=== PATIENT | female | born 1990 | race Caucasian/White ===

== ENCOUNTER 2017-08-15 09:02 | Emergency (ER) | payer OTHER ==
[~2017-08-15] VITALS: Ht 157.5 cm; Wt 59.0 kg
[~2017-08-15 09:02] MED LIST: CEFTIN250 MG PO; URIN D.S. TABLE1 TAB PO
== END 2017-08-15 12:56 | disposition home or self-care (01) ==
LOC: ER 09:02
DX: M79.81 Nontraumatic hematoma of soft tissue (principal)

== ENCOUNTER 2021-03-30 14:15 | Inpatient (IN) | payer OTHER ==
[~2021-03-30] VITALS: Ht 157.5 cm; Wt 76.7 kg
[2021-04-02] MEDS ORDERED: PRENATAL TABLE1 EAC1 PO (21:36)
[2021-04-02] MEDS ORDERED: FAMOTIDINE40 MG PO (21:38)
[2021-04-02] MEDS ORDERED: PROZAC40 MG PO (21:39)
== END 2021-04-05 11:24 | disposition home or self-care (01) | DRG 807 ==
LOC: LDR 04-02 21:24 → SURG-SUITE 04-02 21:24 → OB/GYN 04-11 14:15
PROVIDERS: ADMIT Obstetrics & Gynecology; ATTEND Obstetrics & Gynecology
PROC: 10E0XZZ Delivery of Products of Conception, External Approach (ICD-10-PCS; principal; 2021-04-03)
PROC: 4A1HXFZ Monitoring of Products of Conception, Cardiac Rhythm, External Approach (ICD-10-PCS; 2021-04-03)
DX: O80 Encounter for full-term uncomplicated delivery (principal); Z37.0 Single live birth; Z3A.38 38 weeks gestation of pregnancy

== ENCOUNTER 2021-04-01 10:17 | Outpatient (CLI) | payer OTHER ==
[2021-04-02] MEDS ORDERED: PRENATAL TABLE1 EAC1 PO (21:36)
[2021-04-02] MEDS ORDERED: FAMOTIDINE40 MG PO (21:38)
[2021-04-02] MEDS ORDERED: PROZAC40 MG PO (21:39)
== END 2021-04-01 10:56 | disposition home or self-care (01) ==
LOC: NST 10:17
PROVIDERS: ATTEND Obstetrics & Gynecology Maternal & Fetal Medicine
DX: Z34.83 Encounter for supervision of other normal pregnancy, third trimester (principal)